=== PATIENT | female | born 1940 | race Hispanic/Latino ===

== ENCOUNTER → 2022-06-05 | Outpatient (CLI) | payer OTHER ==
[2022-06-05 16:37] LABS: ALBUMIN 3.5 g/dL (3.5-5.0); CREATININE 0.7 mg/dL (0.5-1.5); POTASSIUM 3.9 mmol/L (3.5-5.1); TOTAL PROTEIN, SERUM 7.2 g/dL (6.0-8.3)
== END | disposition home or self-care (01) ==
LOC: LAB 15:34
PROVIDERS: ATTEND Student in an Organized Health Care Education/Training Program
DX: R07.89 Other chest pain (principal)
CPT/HCPCS: 36415; 80053

== ENCOUNTER → 2022-06-09 | Outpatient (CLI) | payer OTHER ==
[~2022-06-09] MED LIST: IOHEXOL 350 MG/ML 100ML INFUS..BTL IV ONE
== END | disposition home or self-care (01) ==
LOC: RAH 10:24
PROVIDERS: ATTEND Student in an Organized Health Care Education/Training Program
DX: I25.10 Atherosclerotic heart disease of native coronary artery without angina pectoris (principal); R07.89 Other chest pain; M47.815 Spondylosis without myelopathy or radiculopathy, thoracolumbar region; K44.9 Diaphragmatic hernia without obstruction or gangrene
CPT/HCPCS: 75574; Q9967

== ENCOUNTER 2023-12-26 16:07 | Emergency (ER) | payer OTHER ==
[~2023-12-26] VITALS: Ht 154.9 cm; Wt 58.1 kg
[2023-12-26 16:09] VITALS: BP 178/70; PULSE 85; RESP 20; TEMP 98.6
[2023-12-26] MEDS ORDERED: IBUP-1554 PO (16:17)
[2023-12-26] MEDS ORDERED: CLIN-141 PO (16:17)
--- NOTE | 2023-12-26 16:18 | ERN ---
ED Note History of Present Illness Stated Complaint: DOG BITE Chief Complaint: Animal Bite Time Seen by MD: 16:11 Dictation: PATIENT IS AN 83-YEAR-OLD FEMALE HERE WITH HER WITH A COMPLAINT OF A DOG BITE TO THE LEFT MEDIAL CALF ONSET1 HOUR PRIOR TO ARRIVAL. PER THE PATIENT AND HER , THE DOG BELONGS TO HER NEIGHBOR AND CAN BE QUARANTINE. THEY ARE UNSURE OF ITS VACCINATION STATUS HOWEVER THEY FEED THE DOG EVERY DAY. THEY ARE UNSURE WHY THE DOG BIT THE PATIENT ACCEPT SHE WAS NEAR HIS FOOD. LAST T ETANUS SHOT IS UNKNOWN SHE DOES HAVE ALLERGIES TO PENICILLIN.. FINALLY, LAW ENFORCEMENT HAS NOT BEEN CALL Past Medical History Past Medical History: Diabetes-Type II, High Cholesterol, Hypertension Surgical History: None History: Not Applicable RN Note Reviewed/Agreed w/PFSH: Yes Review of System Dictation CONSTITUTIONAL: NEGATIVE EXCEPT FOR HPI HEAD/FACE: NEGATIVE EXCEPT FOR HPI EENT: NEGATIVE EXCEPT FOR HPI RESPIRATORY: NEGATIVE EXCEPT FOR HPI GASTROINTESTINAL/ABDOMINAL: NEGATIVE EXCEPT FOR HPI GENITOURINARY: NEGATIVE EXCEPT FOR HPI MUSCULOSKELETAL: NEGATIVE EXCEPT FOR HPI DOG BITE WITH FOR PUNCTURE WOUNDS TO LEFT MEDIAL CALF NO ACTIVE BLEEDING INTEGUMENTARY: NEGATIVE EXCEPT FOR HPI NEUROLOGICAL/PSYCH: NEGATIVE EXCEPT FOR HPI HEMATOLOGIC/LYMPHATIC: NEGATIVE EXCEPT FOR HPI ALL SYSTEMS NEGATIVE, EXCEPT NOTED ABOVE. 13 POINT REVIEW OF SYSTEMS ASSESSED AND ALL NEGATIVE EXCEPT FOR ABOVE. Initial Vital Sign VS Vital Signs Date Time Temp Pulse Resp B/P (MAP) Pulse Ox O2 Delivery O2 Flow Rate FiO2 12/26/23 16:09 98.6 85 20 178/70 98 Room Air 0 Physical Exam Dictation VITAL SIGNS REVIEWED GENERAL APPEARANCE: ALERT, ORIENTED X 3, MILD ACUTE DISTRESS, WELL DEVELOPED, NOURISHED. HEAD AND FACE: NON-TRAUMATIC. EYES: PERRL, PINK CONJUNCTIVAS, EYELID NO TRAUMA, ANTERIOR CHAMBER WITH ARCUS SENILIS. EARS: PINNAS INTACT AND NO SIGNS OF TRAUMA OR ERYTHEMA EAR CANALS CLEAR AND NO DISCHARGE TM NO ERYTHEMA NOSE: NO DISCHARGE, NO BLEEDING. OROPHARYNX: MOUTH NORMAL, TONGUE PINK, PHARYNX CLEAR,NO ERYTHEMA, TONSILS NO EXUDATES, NO ABSCESSES NOTED, MUCOUS MEMBRANE MOIST NECK: SUPPLE, NON-TENDER, NO THYROMEGALY, NO MASSES, NO JVD, NO BRUITS BREAST:DEFERRED CHEST:NO TENDERNESS, NO CREPITUS, NO PARADOXICAL MOVEMENT, NO RETRACTIONS LUNGS:CLEAR, WELL-VENTILATED, SYMMETRIC, NO RALES, NO WHEEZING, NO RHONCHI, NO STRIDOR, GOOD BREATH SOUNDS BILATERALLY HEART: REGULAR RATE, REGULAR RHYTHM, NO MURMUR, NO GALLOPS VASCULAR: NO PERIPHERAL EDEMA, ABDOMEN: SOFT, POSITIVE BOWEL SOUNDS, NONDISTENDED, NO GUARDING, NONTENDER, NO REBOUND, NO MASSES NO HEPATOMEGALY, NO SPLENOMEGALY, NO BURGOS'S SIGN, NO HERNIAS. RECTAL: DEFERRED GENITAL: DEFERRED NEUROLOGICAL: NORMAL SPEECH, MOTOR FUNCTION INTACT, SENSORY FUNCTION INTACT MUSCULOSKELETAL: NECK NONTENDER, FULL RANGE OF MOTION, BACK NONTENDER, FULL RANGE OF MOTION, EXTREMITIES: NONTENDER, FULL RANGE OF MOTION SKIN: COLOR PINK, FOR SUPERFICIAL PUNCTURE WOUNDS TO POSTERIOR LEFT MEDIAL CALF. NO REPAIRS REQUIRED ECCHYMOSIS NOTED TO BITE SITE LYMPHATIC: DEFERRED Results (Laboratory/Radiology) Labs Reviewed?: Yes ED Course ED Course Orders Procedure Category Date Status Time Acetaminophen 500mg PHA 12/26/23 Transmitted Tab (Tylenol 500mg T 16:30 Clindamycin 150mg Cap PHA 12/26/23 Transmitted (Cleocin 150mg Cap 16:30 Neomy PHA 12/26/23 Transmitted Sulf/Bacitra/Polymyxin 16:30 *Nursing CPOE 12/26/23 Transmitted Communication: 16:11 Tetanus,Diphtheria PHA 12/26/23 Transmitted Tox [Adult] (Diphther 16:30 Vital Signs Date Time Temp Pulse Resp B/P (MAP) Pulse Ox O2 Delivery O2 Flow Rate FiO2 12/26/23 16:09 98.6 85 20 178/70 98 Room Air 0 SIXTEEN 15, NO LABS OR IMAGING INDICATED. WE WILL UPDATE TETANUS SHOT AND WE WILL GIVE PROPHYLACTIC ANTIBIOTICS FOR INFECTION. PAIN WE WILL BE MANAGED AND LAW ENFORCEMENT WE WILL BE NOTIFIED OF DOG BITE. Medical Decision Making MDM MEDICAL DISCHARGE MAKING BASED ON TETANUS UPDATE, GIVING PROPHYLACTIC ANTIBIOTICS WOUND WE WILL BE TREATED LOCALLY WITH NO REPAIRS REQUIRED LAW ENFORCEMENT WE WILL BE NOTIFIED DX & DISP Disposition: Discharge Departure Impression: Primary Impression: Dog bite of left lower leg Additional Impression: Puncture wound of leg not thigh, left Condition: Stable Scripts Ibuprofen (Ibu) 600 Mg Tablet 1 TAB PO Q6H for Pain for 7 Days, #28 TAB 0 Refills Prov: LIZETTE YORK NP 12/26/23 Clindamycin HCl (Clindamycin HCl) 300 Mg Capsule 1 CAP PO QID for 7 Days, #28 CAP 0 Refills Prov: LIZETTE YORK NP 12/26/23 Additional Instructions: Follow-up with primary care provider in 1 to 2 days. Take medications as directed here in the emergency room. Okay to continue home medications unless otherwise discussed during your visit in the emergency room today. Return to your nearest emergency room if symptoms worsen or if there is no improvement. Call 911 if you need immediate assistance. Take Tylenol or Motrin [id number] as needed and if no contraindications are present. Increase oral hydration. A wound culture or urine culture was ordered here in the emergency room department please follow-up with primary care provider and advise them to get repeat ports from our facility. If you had any Aidan wrap/splints that were applied here, please do not remove them until you see your primary care or specialty. Take antibiotics as directed until gone., triple antibiotic ointment/[id number] times a day for five days with dressing two puncture wounds. Cool compresses to swelling three to 4 times a day. Complete the report for law enforcement so animal can be picked up and monitored. Referrals: EMMA CASTREJON MD (PCP) Time of Disposition: 16:16 I have reviewed the case, and I agree with, Diagnosis and Plan LIZETTE YORK NP Dec 26, 2023 16:18
[2023-12-26] MEDS: acetaMINOPHEN 500 MG TABLET PO ONE (16:54)
[2023-12-26] MEDS: CLINDAMYCIN 150 MG CAP PO ONE (16:55)
[2023-12-26] MEDS: NEOMY SULF/BACITRA/POLYMYXIN B 1 EACH PACKET TP ONE (16:58)
[2023-12-26] MEDS: teTANUS/diphthERIA TOXOID [ADULT] 0.5 ML VIAL IM ONE (16:58)
== END 2023-12-26 18:10 | disposition home or self-care (01) ==
LOC: EDH 16:07
DX: S81.852A Open bite, left lower leg, initial encounter (principal); E11.9 Type 2 diabetes mellitus without complications; E78.00 Pure hypercholesterolemia, unspecified; I10 Essential (primary) hypertension; W54.0XXA Bitten by dog, initial encounter; Y93.89 Activity, other specified; Y92.89 Other specified places as the place of occurrence of the external cause; Y99.8 Other external cause status
CPT/HCPCS: 90471; 90714